=== PATIENT | female | born 1985 | race Caucasian/White ===

== ENCOUNTER 2017-07-19 06:37 | Emergency (ER) | payer OTHER ==
[~2017-07-19] VITALS: Ht 170.1 cm; Wt 121.1 kg
[~2017-07-19 06:37] MED LIST: ADDERALL XR 3030 MG PO; ADDERALL15 MG PO; ADVAIR 100/501 EA INH; AMBIEN5 MG PO; AMOXICILLIN500 M3 PO; AMOXICILLIN500 MG PO; ANAPROX DS550 MG PO; ASPIRIN81 M1 PO; ATIVAN1 MG PO; AUGMENTIN 875 M1 TAB PO; B-1100 MG PO; BACTRIM DS 8001 TA1 PO; BACTROBAN OINT22 GM PO; BACTROBAN2% TP; BENADRYL25 MG PO; CATAFLAM50 MG PO; CIPRO250 MG PO; CIPROFLOXACIN500 M4 PO; CIPROFLOXACIN500 MG PO; CLARITIN10 MG PO; CLEOCIN150 MG PO; CLINDAMYCIN HC300 MG PO; CLINDAMYCIN150 MG PO; COMPAZINE10 MG PO; DEPAKOTE500 MG PO; DOXYCYCLINE100 M3 PO; FLEXERIL10 MG PO; FLUCONAZOLE100 MG PO; HEARTBURN RELIE20 MG PO; HYDROCODONE BIT1 T11 PO; HYDROXYZINE PAM25 M1 PO; IBU800 M1 PO; IBUPROFEN800 MG PO; KEFLEX500 MG PO; KETOROLAC10 MG PO; LOMOTIL 0.025 M1 TA1 PO; MACROBID100 M1 PO; MEDROL DOSEPAK4 MG PO; METRONIDAZOLE500 M1 PO; MIRALAX POWDER17 G1 PO; MIRTAZAPINE15 M2 PO; MOTRIN800 MG PO; MULTIPLE VITAMI1 TAB PO; Motrin,Rufen800 MG PO; NATURE'S BLEND F1 MG PO; NKHM; Nystatin Ointme30 GM T; ONDANSETRON4 MG PO; Orphenadrine C100 MG PO; PENICILLIN VK500 MG PO; PHENERGAN25 M1 PO; PRENATAL1 TA1 PO; PULMICORT180 MCG/Ac IH; REGLAN10 MG PO; RISPERDAL2 M1 PO; RISPERIDONE1 MG PO; SEPTRA DS 800 M1 TAB PO; SEROQUEL25 MG PO; SINEMET 25-1001 TA1 PO; SINEMET 25-100M1 TAB PO; SUBOXONE 2 MG-01 TA1 SL; SUBOXONE 8 MG-1 EACH SL; SUBOXONE 8 MG-21 TA1 SL; SUBOXONE 8 MG-21 TAB SL; TRAMADOL HCL50 MG PO; TYLENOL W/CODEI1 TA2 PO; VISTARIL100 MG PO; VISTARIL50 MG PO; ZOFRAN ODT4 MG SL; ZYPREXA5 M1 PO; ZYRTEC10 MG PO; Zofran4 MG PO; [UNRECOGNIZED DRUG - OTHER] T
[2017-07-19 07:29] LABS: BILIRUBIN NEGATIVE (NEGATIVE); BLOOD 2+ (NEGATIVE); CLARITY CLOUDY (CLEAR); COLOR YELLOW (YELLOW); GLUCOSE NEGATIVE (NEGATIVE); KETONE NEGATIVE (NEGATIVE); LEUKO ESTERASE NEGATIVE (NEGATIVE); NITRITE NEGATIVE (NEGATIVE); UROBILINOGEN 0.2 E.U./dl (0.2-1.0)
[2017-07-19 07:37] LABS: BACTERIA TRACE
[2017-07-19 08:09] LABS: BASO # 0.1 10*3/uL (0.0-0.1); BASO % 0.6 % (0.0-1.0); EOS # 0.1 10*3/uL (0.0-0.4); EOS % 1.1 % (1.0-4.0); HEMATOCRIT 38.8 % (37.0-47.0); HEMOGLOBIN 12.3 g/dl (12.0-16.0); LYMPH # 1.8 10*3/uL (1.3-4.4); LYMPH % 16.1 % (27.0-41.0); MEAN CELL VOLUME 81.7 fl (81.0-99.0); MEAN CORPUSCULAR HGB 25.9 pg (27.0-31.0); MEAN CORPUSCULAR HGB CONC 31.7 g/dl (33.0-37.0); MEAN PLATELET VOLUME 11.2 fl (9.6-12.3); MONO # 0.6 10*3/uL (0.1-1.0); MONO % 4.9 % (3.0-9.0); NEUT # 8.6 10*3/uL (2.3-7.9); PLATELET COUNT AUTOMATED 337 10*3/uL (130-400); RED BLOOD COUNT 4.75 10*6/uL (4.10-5.10); RED CELL DISTRI WIDTH 14.3 % (0-14.5); WHITE BLOOD COUNT 11.2 10*3/uL (4.8-10.8)
[2017-07-19 08:31] LABS: ALBUMIN 3.4 gm/dl (3.1-4.5); ALKALINE PHOSPHATASE 84 U/L (45-117); BUN 11 mg/dl (7-24); CHLORIDE 103 mmol/L (98-107); CREATININE 0.86 mg/dL (0.55-1.02); LIPASE 90 U/L (73-393); MAGNESIUM 2.3 mg/dL (1.5-2.1); POTASSIUM 4.1 mmol/L (3.5-5.1); SGOT/AST 24 IU/L (3-35); SGPT/ALT 24 U/L (12-78); SODIUM 137 mmol/L (136-145); TOTAL PROTEIN 7.9 gm/dL (6.4-8.2)
[2017-07-19 08:32] LABS: BETA-HCG, QUANT < 1.0 mIU/mL (1-3)
[2017-07-19 09:01] VITALS: BP 99/55
[2017-07-19] MEDS ORDERED: PHENERGAN25 M3 PO (10:32)
== END 2017-07-19 10:53 | disposition home or self-care (01) ==
LOC: ED 06:37
PROVIDERS: Emergency Medicine; Emergency Medicine Emergency Medical Services
DX: R11.2 Nausea with vomiting, unspecified (principal); R10.9 Unspecified abdominal pain; F17.210 Nicotine dependence, cigarettes, uncomplicated; F14.10 Cocaine abuse, uncomplicated; Z88.1 Allergy status to other antibiotic agents; Z91.040 Latex allergy status; Z79.899 Other long term (current) drug therapy

== ENCOUNTER → 2018-01-10 | Outpatient (CLI) | payer OTHER ==
[~2018-01-10] MED LIST changes: +PHENERGAN25 M3 PO
[2018-01-10 10:33] LABS: HEMATOCRIT 39.9 % (37.0-47.0); MEAN CELL VOLUME 83.6 fl (81.0-99.0); MEAN CORPUSCULAR HGB 27.3 pg (27.0-31.0); MEAN CORPUSCULAR HGB CONC 32.6 g/dl (33.0-37.0); MEAN PLATELET VOLUME 11.2 fl (9.6-12.3); RED BLOOD COUNT 4.77 10*6/uL (4.10-5.10); RED CELL DISTRI WIDTH 14.6 % (0-14.5); WHITE BLOOD COUNT 8.3 10*3/uL (4.8-10.8)
[2018-01-10 10:56] LABS: ALBUMIN 3.8 gm/dl (3.1-4.5); BUN 13 mg/dl (7-24); CHLORIDE 105 mmol/L (98-107); CHOLESTEROL 190 mg/dL (<200); CREATININE 0.64 mg/dL (0.55-1.02); POTASSIUM 3.9 mmol/L (3.5-5.1); SGOT/AST 19 IU/L (3-35); SGPT/ALT 30 U/L (12-78); SODIUM 137 mmol/L (136-145); TOTAL PROTEIN 7.9 gm/dL (6.4-8.2); TRIGLYCERIDES 124 mg/dl (<150); VLDL CHOLESTEROL 25 mg/dL (6-40)
[2018-01-10 11:06] LABS: ALKALINE PHOSPHATASE 72 U/L (45-117); HDL CHOLESTEROL 43 mg/dl (40-60); LDL CHOLESTEROL 122 mg/dL (9-159)
[2018-01-11 08:10] LABS: HEPATITIS B SURFACE AG Negative (Negative); HEPATITIS C VIRUS ANTIBODY <0.1 s/co (0.0-0.9)
== END | disposition home or self-care (01) ==
LOC: LAB 10:13
DX: M47.897 Other spondylosis, lumbosacral region (principal); M48.07 Spinal stenosis, lumbosacral region; F17.200 Nicotine dependence, unspecified, uncomplicated; Z87.898 Personal history of other specified conditions; R79.89 Other specified abnormal findings of blood chemistry

== ENCOUNTER 2018-01-16 02:29 | Emergency (ER) | payer OTHER ==
[~2018-01-16] VITALS: Ht 167.6 cm; Wt 95.3 kg
[2018-01-16 02:38] VITALS: BP 132/94
[2018-01-16] MEDS ORDERED: Zofran4 MG SL (03:03)
== END 2018-01-16 02:49 | disposition home or self-care (01) ==
LOC: ED 02:29
DX: R11.2 Nausea with vomiting, unspecified (principal); R19.7 Diarrhea, unspecified; F41.9 Anxiety disorder, unspecified; F90.9 Attention-deficit hyperactivity disorder, unspecified type; F32.9 Major depressive disorder, single episode, unspecified; Z91.040 Latex allergy status; Z88.1 Allergy status to other antibiotic agents

== ENCOUNTER → 2018-05-01 | Outpatient (CLI) | payer OTHER ==
[~2018-05-01] MED LIST changes: +Zofran4 MG SL
[2018-05-01 12:50] LABS: ALBUMIN 3.9 gm/dl (3.1-4.5); ALKALINE PHOSPHATASE 79 U/L (45-117); BUN 13 mg/dl (7-24); CHLORIDE 107 mmol/L (98-107); CREATININE 0.63 mg/dL (0.55-1.02); POTASSIUM 3.7 mmol/L (3.5-5.1); SGOT/AST 22 IU/L (3-35); SGPT/ALT 30 U/L (12-78); SODIUM 136 mmol/L (136-145); TOTAL PROTEIN 7.8 gm/dL (6.4-8.2)
[2018-05-01 13:16] LABS: BASO # 0.1 10*3/uL (0.0-0.1); BASO % 0.7 % (0.0-1.0); EOS # 0.1 10*3/uL (0.0-0.4); EOS % 1.2 % (1.0-4.0); HEMATOCRIT 40.6 % (37.0-47.0); HEMOGLOBIN 12.8 g/dl (12.0-16.0); LYMPH # 1.9 10*3/uL (1.3-4.4); LYMPH % 26.4 % (27.0-41.0); MEAN CELL VOLUME 85.1 fl (81.0-99.0); MEAN CORPUSCULAR HGB 26.8 pg (27.0-31.0); MEAN CORPUSCULAR HGB CONC 31.5 g/dl (33.0-37.0); MEAN PLATELET VOLUME 12.4 fl (9.6-12.3); MONO # 0.5 10*3/uL (0.1-1.0); MONO % 6.3 % (3.0-9.0); NEUT # 4.7 10*3/uL (2.3-7.9); NEUT % 65.1 % (47.0-73.0); PLATELET COUNT AUTOMATED 257 10*3/uL (130-400); RED BLOOD COUNT 4.77 10*6/uL (4.10-5.10); RED CELL DISTRI WIDTH 13.8 % (0-14.5); WHITE BLOOD COUNT 7.3 10*3/uL (4.8-10.8)
[2018-05-02 07:09] LABS: HEPATITIS B SURFACE AG Negative (Negative); HEPATITIS C VIRUS ANTIBODY <0.1 s/co (0.0-0.9)
== END | disposition home or self-care (01) ==
LOC: LAB 12:04
DX: F11.20 Opioid dependence, uncomplicated (principal); Z87.898 Personal history of other specified conditions

== ENCOUNTER 2018-07-13 13:00 | Emergency (ER) | payer OTHER ==
[~2018-07-13] VITALS: Ht 170.1 cm; Wt 122.5 kg
[2018-07-13 13:06] VITALS: BP 166/94
== END 2018-07-13 15:05 | disposition home or self-care (01) ==
LOC: ED 13:00
DX: S50.02XA Contusion of left elbow, initial encounter (principal); S49.92XA Unspecified injury of left shoulder and upper arm, initial encounter; E66.01 Morbid (severe) obesity due to excess calories; G43.909 Migraine, unspecified, not intractable, without status migrainosus; F11.20 Opioid dependence, uncomplicated; F17.210 Nicotine dependence, cigarettes, uncomplicated; Z88.1 Allergy status to other antibiotic agents; Z91.040 Latex allergy status; Z79.899 Other long term (current) drug therapy; Z98.890 Other specified postprocedural states; W20.8XXA Other cause of strike by thrown, projected or falling object, initial encounter; Y93.89 Activity, other specified; Y92.89 Other specified places as the place of occurrence of the external cause; Y99.8 Other external cause status

== ENCOUNTER 2018-10-17 17:28 | Emergency (ER) | payer OTHER ==
[~2018-10-17] VITALS: Wt 123.8 kg
[2018-10-17 17:28] VITALS: BP 131/80
[2018-10-17] MEDS ORDERED: CEFADROXIL500 M1 PO (17:58)
[2018-10-17] MEDS ORDERED: Motrin,Rufen800 MG PO (17:58)
== END 2018-10-17 18:20 | disposition home or self-care (01) ==
LOC: ED 17:28
DX: L03.032 Cellulitis of left toe (principal); L53.9 Erythematous condition, unspecified; I10 Essential (primary) hypertension; F17.210 Nicotine dependence, cigarettes, uncomplicated; Z91.040 Latex allergy status; Z88.1 Allergy status to other antibiotic agents; Z79.899 Other long term (current) drug therapy

== ENCOUNTER → 2019-01-21 | Outpatient (CLI) | payer OTHER ==
[~2019-01-21] MED LIST changes: +CEFADROXIL500 M1 PO
[2019-01-21 09:24] LABS: HEMATOCRIT 39.2 % (37.0-47.0); HEMOGLOBIN 12.6 g/dl (12.0-16.0); MEAN CELL VOLUME 85.2 fl (81.0-99.0); MEAN CORPUSCULAR HGB 27.4 pg (27.0-31.0); MEAN CORPUSCULAR HGB CONC 32.1 g/dl (33.0-37.0); MEAN PLATELET VOLUME 11.5 fl (9.6-12.3); RED BLOOD COUNT 4.6 10*6/uL (4.10-5.10); RED CELL DISTRI WIDTH 13.6 % (0-14.5); WHITE BLOOD COUNT 7.2 10*3/uL (4.8-10.8)
[2019-01-21 09:55] LABS: ALBUMIN 3.4 gm/dl (3.1-4.5); ALKALINE PHOSPHATASE 82 U/L (45-117); BUN 17 mg/dl (7-24); CHLORIDE 108 mmol/L (98-107); CHOLESTEROL 175 mg/dL (<200); CREATININE 0.66 mg/dL (0.55-1.02); HDL CHOLESTEROL 50 mg/dl (40-60); LDL CHOLESTEROL 111 mg/dL (9-159); POTASSIUM 3.9 mmol/L (3.5-5.1); SGOT/AST 19 IU/L (3-35); SGPT/ALT 32 U/L (12-78); SODIUM 139 mmol/L (136-145); TOTAL PROTEIN 7.8 gm/dL (6.4-8.2); TRIGLYCERIDES 71 mg/dl (<150); VLDL CHOLESTEROL 14 mg/dL (6-40)
[2019-01-22 07:05] LABS: DHEA SULFATE 198.3 ug/dL (84.8-378.0); FOLLICLE STIMULATING HORMONE 4.1 mIU/mL (.); LUTEINIZING HORMONE 004283 9.3 mIU/mL (.); PROLACTIN 004465 26.2 ng/mL (4.8-23.3)
[2019-01-22 19:05] LABS: TESTOSTERONE FREE, (DIRECT) 1.6 pg/mL (0.0-4.2)
== END | disposition home or self-care (01) ==
LOC: LAB 08:16
PROVIDERS: Nurse Practitioner Women's Health; Physician Assistant
DX: Z01.419 Encounter for gynecological examination (general) (routine) without abnormal findings (principal); I10 Essential (primary) hypertension; F17.200 Nicotine dependence, unspecified, uncomplicated; F43.10 Post-traumatic stress disorder, unspecified; F41.9 Anxiety disorder, unspecified

== ENCOUNTER 2019-08-07 08:56 | Emergency (ER) | payer OTHER ==
[~2019-08-07] VITALS: Ht 170.1 cm; Wt 127.0 kg
[2019-08-07 08:58] VITALS: BP 130/74
== END 2019-08-07 10:15 | disposition home or self-care (01) ==
LOC: ED 08:56
DX: J06.9 Acute upper respiratory infection, unspecified (principal); E66.01 Morbid (severe) obesity due to excess calories; G43.909 Migraine, unspecified, not intractable, without status migrainosus; F17.210 Nicotine dependence, cigarettes, uncomplicated; Z79.899 Other long term (current) drug therapy

== ENCOUNTER → 2020-01-01 | Outpatient (CLI) | payer OTHER ==
[2020-01-01 11:53] LABS: ALBUMIN 3.8 gm/dl (3.1-4.5); ALKALINE PHOSPHATASE 75 U/L (45-117); BUN 14 mg/dl (7-24); CHLORIDE 107 mmol/L (98-107); POTASSIUM 4.2 mmol/L (3.5-5.1); SGOT/AST 19 IU/L (3-35); SGPT/ALT 25 U/L (12-78); SODIUM 138 mmol/L (136-145); TOTAL PROTEIN 7.7 gm/dL (6.4-8.2)
[2020-01-02 06:08] LABS: HEPATITIS B SURFACE AG Negative (Negative); HEPATITIS C VIRUS ANTIBODY <0.1 s/co (0.0-0.9)
== END | disposition home or self-care (01) ==
LOC: LAB 10:25
PROVIDERS: Family Medicine
DX: F11.20 Opioid dependence, uncomplicated (principal)

== ENCOUNTER → 2020-01-16 | Outpatient (CLI) | payer OTHER | END | disposition home or self-care (01) | LOC: US 16:00 | DX: N92.1 Excessive and frequent menstruation with irregular cycle (principal) ==

== ENCOUNTER → 2021-03-11 | Outpatient (CLI) | payer OTHER | END | disposition home or self-care (01) | LOC: D 08:56 | PROVIDERS: ATTEND Physician Assistant | DX: F41.9 Anxiety disorder, unspecified (principal); R63.5 Abnormal weight gain ==

== ENCOUNTER → 2021-06-08 | Outpatient (CLI) | payer OTHER | END | disposition home or self-care (01) | LOC: CARD 12:06 | PROVIDERS: ATTEND Social Worker Clinical | DX: Z51.81 Encounter for therapeutic drug level monitoring (principal); Z79.899 Other long term (current) drug therapy ==

== ENCOUNTER → 2021-11-19 | Outpatient (CLI) | payer OTHER | END | disposition home or self-care (01) | LOC: COVID19 16:07 | PROVIDERS: ATTEND Family Medicine | DX: Z11.52 Encounter for screening for COVID-19 (principal) ==

== ENCOUNTER 2022-05-07 01:54 | Emergency (ER) | payer OTHER ==
[~2022-05-07] VITALS: Ht 170.1 cm; Wt 104.3 kg
[2022-05-07] MEDS ORDERED: CYCLOBENZAPRINE10 MG PO (04:20)
== END 2022-05-07 04:24 | disposition home or self-care (01) ==
LOC: ED 01:54
DX: M62.838 Other muscle spasm (principal); G43.909 Migraine, unspecified, not intractable, without status migrainosus; Z91.041 Radiographic dye allergy status; Z88.1 Allergy status to other antibiotic agents; Z79.899 Other long term (current) drug therapy

== ENCOUNTER → 2022-05-23 | Outpatient (CLI) | payer OTHER ==
[~2022-05-23] MED LIST changes: +CYCLOBENZAPRINE10 MG PO
== END | disposition home or self-care (01) ==
LOC: RAD 13:55
PROVIDERS: ATTEND Internal Medicine
DX: M25.511 Pain in right shoulder (principal)

== ENCOUNTER 2023-02-19 15:15 | Emergency (ER) | payer OTHER ==
[~2023-02-19] VITALS: Ht 170.2 cm; Wt 104.3 kg
[2023-02-19 15:25] VITALS: BP 125/76
[2023-02-19 16:10] LABS: BILIRUBIN Negative (Negative); BLOOD 2+ (Negative); CLARITY Clear (Clear); COLOR Yellow (Yellow); GLUCOSE Negative (Negative); KETONE Negative (Negative); LEUKO ESTERASE 1+ (Negative); NITRITE Negative (Negative); SPECIFIC GRAVITY 1.015 (1.001-1.030)
[2023-02-19 16:10] LABS: BASO # 0.1 10*3/uL (0.0-0.1); BASO % 0.8 % (0.0-1.0); EOS # 0.2 10*3/uL (0.0-0.4); EOS % 2.6 % (1.0-4.0); HEMATOCRIT 31.6 % (37.0-47.0); LYMPH # 1.7 10*3/uL (1.3-4.4); LYMPH % 19.9 % (27.0-41.0); MEAN CELL VOLUME 85.6 fl (81.0-99.0); MEAN CORPUSCULAR HGB 28.2 pg (27.0-31.0); MEAN CORPUSCULAR HGB CONC 32.9 g/dl (33.0-37.0); MEAN PLATELET VOLUME 10.4 fl (9.6-12.3); MONO # 0.8 10*3/uL (0.1-1.0); MONO % 9.7 % (3.0-9.0); NEUT # 5.5 10*3/uL (2.3-7.9); NEUT % 65.6 % (47.0-73.0); PLATELET COUNT AUTOMATED 294 10*3/uL (130-400); RED BLOOD COUNT 3.69 10*6/uL (4.10-5.10); WHITE BLOOD COUNT 8.3 10*3/uL (4.8-10.8)
[2023-02-19 16:26] LABS: ALKALINE PHOSPHATASE 131 U/L (46-116); BUN 12 mg/dl (9-23); CHLORIDE 110 mmol/L (98-107); POTASSIUM 3.9 mmol/L (3.4-5.1); SGPT/ALT 27 U/L (10-49); TOTAL PROTEIN 6.1 gm/dL (6.0-8.0)
== END 2023-02-19 18:21 | disposition home or self-care (01) ==
LOC: ED 15:15
PROVIDERS: Emergency Medicine
DX: A46 Erysipelas (principal); R19.00 Intra-abdominal and pelvic swelling, mass and lump, unspecified site; F41.9 Anxiety disorder, unspecified; J45.909 Unspecified asthma, uncomplicated; Z91.040 Latex allergy status; Z88.1 Allergy status to other antibiotic agents; Z98.890 Other specified postprocedural states; F14.10 Cocaine abuse, uncomplicated; F12.90 Cannabis use, unspecified, uncomplicated; F11.20 Opioid dependence, uncomplicated; F17.210 Nicotine dependence, cigarettes, uncomplicated; Z79.899 Other long term (current) drug therapy